=== PATIENT | male | born 1960 | race Caucasian/White ===

== ENCOUNTER 2016-07-02 12:46 | Emergency (ER) | payer OTHER ==
[2016-07-02] MEDS ORDERED: OXYCODONE/APAP 5/325MG COMBO TABLET PO ONE (12:59)
[2016-07-02] MEDS ORDERED: METHOCARBAMOL 500 MG TABLET PO ONE (12:59)
[2016-07-02] MEDS ORDERED: morphine CARPU-JECT 4 MG/1 ML DISP.SYRIN IVPUSH ONE (13:05)
[2016-07-02] MEDS ORDERED: METHOCARBAMOL 500 MG TABLET ONE (13:06)
[2016-07-02 13:07] VITALS: BP 131/108; PULSE 99; TEMP 98
[2016-07-02] MEDS ORDERED: morphine CARPU-JECT 4 MG/1 ML DISP.SYRIN ONE (13:22)
[2016-07-02 13:35] VITALS: BMI 44.9
--- NOTE | 2016-07-02 14:01 | PDOC ---
History of Present Illness - General History Source: Patient Exam Limitations: No Limitations <Mary Cid - Last Filed: 07/02/16 14:08> - General History Source: Patient Exam Limitations: No Limitations - History of Present Illness Initial Comments: 07/02/16 14:13 The patient is a 55-year-old male, with a significant past medical history of two clogged arteries (2 stents), hypercholesterolemia, herniated disc, spinal stenosis, arthritis of the knee, who presents to the emergency department with left shoulder pain s/p mechanical fall today. The patient reports suddenly falling face first while walking in the snow. He states he had his hands and arms outstretched to break the fall, and landed on the left side of his body. He reports feeling like something ripped from the left shoulder. He states the pain is exacerbated by movement. The patient denies head trauma or loss of consciousness. He denies paresthesia in the extremities secondary to the mechanical fall. The patient denies chest pain, shortness of breath, palpitations, headache and dizziness. The patient denies fever, chills, nausea, vomit, diarrhea and constipation. Allergies: lactose Social history: Former smoker (quit 4 years ago, 2 packs per day), former alcohol abuse. <TariqKeisha - Last Filed: 07/02/16 14:17> - General Chief Complaint: Shoulder Dislocation Stated Complaint: FALL Time Seen by Provider: 07/02/16 12:57 Past History - Past Medical History Anemia: No Asthma: No Cancer: No Cardiac Disorders: Yes (cad s/p angioplasty with 2 stents at [facility] 08/20/15) CVA: No COPD: No CHF: No Dementia: No Diabetes: No GI Disorders: Yes (gerd, completed tx for H. pylori 3 yrs ago ) Disorders: No HTN: Yes (on meds) Hypercholesterolemia: Yes (on med) Kidney Stones: No Liver Disease: No Suicide Attempt (Hx): Yes (age 8) Seizures: No Thyroid Disease: No Other medical history: 2 STENTS - Surgical History Abdominal Surgery: No Appendectomy: No Cardiac Surgery: Yes (s/p angioplasty with 2 stents in 08/20/15 at [facility]) Cholecystectomy: No Lung Surgery: No Neurologic Surgery: No Orthopedic Surgery: No - Reproductive History Testicular Surgery: No - Psycho/Social/Smoking Cessation Hx Anxiety: No Suicidal Ideation: No Smoking History: Former smoker Have you smoked in the past 12 months: No If you are a former smoker, when did you quit?: 2012 Information on smoking cessation initiated: No 'Breaking Loose' booklet given: 10/07/15 Hx Alcohol Use: Yes (FORMER) Drug/Substance Use Hx: No Substance Use Type: Alcohol Hx Substance Use Treatment: Yes ([facility] ) <Mary Cid - Last Filed: 07/02/16 14:08> <Keisha Tariq - Last Filed: 07/02/16 14:17> - Past Medical History Allergies/Adverse Reactions: Allergies Allergy/AdvReac Type Severity Reaction Status Date / Time lactose AdvReac Severe Verified 07/02/16 13:00 Home Medications: Ambulatory Orders Aspirin [ASA -] 81 mg PO DAILY 10/07/15 Clopidogrel Bisulfate [Plavix -] 75 mg PO DAILY 10/07/15 Omeprazole [Prilosec] 20 mg PO BID 10/07/15 Atorvastatin Ca [Lipitor] 40 mg PO HS #0 tablet 10/11/15 Acetaminophen [Tylenol -] 1,000 mg PO BID PRN 10/16/15 Folic Acid - 1 mg PO DAILY 10/16/15 Gabapentin [Neurontin -] 300 mg PO BID 10/16/15 Metoprolol Tartrate [Lopressor -] 12.5 mg PO BID 10/16/15 Thiamine HCl [B-1] 100 mg PO DAILY 10/16/15 Methocarbamol [Robaxin -] 500 mg PO TID PRN #30 tablet 07/02/16 Oxycodone HCl/Acetaminophen [Percocet 5-325 mg Tablet -] 1 tab PO Q6H PRN #16 tablet MDD 4 07/02/16 Trauma Specific PMHX - Complaint Specific PMHX Arthritis: Yes (knees) <Mary Cid - Last Filed: 07/02/16 14:08> Review of Systems - Review of Systems Able to Perform ROS?: Yes Comments:: 07/02/16 14:13 GENERAL/CONSTITUTIONAL: No: fever, chills, weakness, loss of appetite. HEAD, EYES, EARS, NOSE AND THROAT: No: change in vision, ear pain, discharge, sore throat, throat swelling. CARDIOVASCULAR: No: chest pain, lightheadedness, palpitations, syncope RESPIRATORY: No: cough, shortness of breath, wheezing, hemoptysis, stridor. GASTROINTESTINAL: No: nausea, vomiting, abdominal cramping, diarrhea, rectal bleeding, constipation. GENITOURINARY: No: dysuria, hematuria, frequency, urgency, flank pain. MUSCULOSKELETAL: Present: (+) left shoulder pain No: back pain, neck pain, muscle swelling SKIN AND BREASTS: No: lesions, pallor, rash or easy bruising. NEUROLOGIC: No: headache, vertigo, paresthesias, weakness ENDOCRINE: No: unexplained weight gain or loss HEMATOLOGIC/LYMPHATIC: No: anemia, easy bleeding, swelling nodes <Tariq,Keisha - Last Filed: 07/02/16 14:17> *Physical Exam - Vital Signs Last Vital Signs Temp Pulse Resp BP Pulse Ox 98.0 F 99 H 20 131/108 07/02/16 13:01 07/02/16 13:01 07/02/16 13:01 07/02/16 13:01 <Mary Cid - Last Filed: 07/02/16 14:08> - Vital Signs Last Vital Signs Temp Pulse Resp BP Pulse Ox 98.0 F 99 H 20 131/108 07/02/16 13:01 07/02/16 13:01 07/02/16 13:01 07/02/16 13:01 - Physical Exam Comments: 07/02/16 14:13 GENERAL: Awake, alert, and oriented. HEAD: Normal with no evidence of head trauma. EYES: PERRLA, EOMI, sclera anicteric, conjunctiva clear. ENT: Ears normal, nares patent, oropharynx clear without exudates. Moist mucous membranes. NECK: Normal range of motion, supple without lymphadenopathy, JVD, or masses. LUNGS: Breath sounds equal, clear to auscultation bilaterally. No wheezes, and no crackles. HEART:Regular rate and rhythm, normal S1 and S2 without murmur, rub or gallop. ABDOMEN: Soft, nontender, normoactive bowel sounds. No guarding, no rebound. EXTREMITIES: (+) Left shoulder deformity, pain with motion. (+) Radial and ulnar pulse normal. Sensation intact. (+)Limited range of motion at the left shoulder due to pain. No edema. No clubbing or cyanosis. No erythema. NEUROLOGICAL: Cranial nerves II through XII grossly intact. Normal speech. No focal neurological deficits. MUSCULOSKELETAL: Back non-tender to palpation, no CVA tenderness SKIN: Warm, Dry, normal turgor, no rashes or lesions noted. <Keisha Tariq - Last Filed: 07/02/16 14:17> ED Treatment Course - RADIOLOGY Radiology Studies Ordered: Category Date Time Status SHOULDER-LEFT [RAD] Stat Radiology 07/02/16 12:58 Completed - Medications Given in the ED: ED Medications Discontinued Medications Generic Name Dose Route Start Last Admin Trade Name Freq PRN Reason Stop Dose Admin Methocarbamol 500 mg 07/02/16 12:59 07/02/16 13:14 Robaxin - PO 07/02/16 13:00 500 mg ONCE ONE Administration Morphine Sulfate 4 mg 07/02/16 13:05 07/02/16 13:33 Morphine Injection - IVPUSH 07/02/16 13:06 4 mg ONCE ONE Administration Oxycodone/Acetaminophen 1 combo 07/02/16 12:59 07/02/16 13:40 Percocet 5/325 - PO 07/02/16 13:00 Not Given ONCE ONE <Mary Cid - Last Filed: 07/02/16 14:08> - RADIOLOGY Radiograph Interpretation: 07/02/16 14:14 RAD/SHOULDER- LEFT Reviewed by: Dr. Mary Cid Interpreted by: Dr. Yfn Emanuel IMPRESSION: Acute left humeral fracture. - Medications Given in the ED: ED Medications Discontinued Medications Generic Name Dose Route Start Last Admin Trade Name Freq PRN Reason Stop Dose Admin Methocarbamol 500 mg 07/02/16 12:59 07/02/16 13:14 Robaxin - PO 07/02/16 13:00 500 mg ONCE ONE Administration Morphine Sulfate 4 mg 07/02/16 13:05 07/02/16 13:33 Morphine Injection - IVPUSH 07/02/16 13:06 4 mg ONCE ONE Administration Oxycodone/Acetaminophen 1 combo 07/02/16 12:59 07/02/16 13:40 Percocet 5/325 - PO 07/02/16 13:00 Not Given ONCE ONE <Keisha Tariq - Last Filed: 07/02/16 14:17> Medical Decision Making - Medical Decision Making 07/02/16 13:47 A portion of this note was documented by scribe services under my direction. I have reviewed the details of the note, within reason, and agree with the documentation with the following case summary and management plan written by me. Nursing documentation reviewed and incorporated into medical decision making This is a 55 yo M who presents to the ER s/p fall from standing He has a history of HTN, HLD, CAD s/p stent x 2 Pt states he was walking on the street and slipped (it was snowy today) He fell forward and landed on his left arm which was outstretched No head trauma No LOC No amnesia No preceding chest pain, shortness of breath, palpitations, focal weakness or numbness 07/02/16 13:52 On examination: Left shoulder deformity Sensation in tact in the hand and over the deltoids Able to move fingers, no difficulty Hand is warm 2+ RP and UP Xray: Acute left femoral head and neck fracture Case reviewed with Ortho Pt can be discharged Pt can go in a sling Pt can follow up with Dr Barton within 2-3 business days Pt will need to also follow up with PMD for medical clearance Monitor for numbness, tingling, swelling <Mary Cid - Last Filed: 07/02/16 14:08> *DC/Admit/Observation/Transfer - Discharge Dispostion Admit: No <Mary Cid - Last Filed: 07/02/16 14:08> - Attestations Scribe Attestion: 07/02/16 14:14 Documentation prepared by Keisha Tariq, acting as medical assistant dermatology for Mary Cid MD. <Keisha Tariq - Last Filed: 07/02/16 14:17> Diagnosis at time of Disposition: Fracture of humeral head, closed Qualifiers: Encounter type: initial encounter Laterality: left Qualified Code(s): S42.292A - Other displaced fracture of upper end of left humerus, initial encounter for closed fracture Fracture of neck of humerus Qualifiers: Encounter type: initial encounter Fracture type: closed Laterality: left Qualified Code(s): S42.212A - Unspecified displaced fracture of surgical neck of left humerus, initial encounter for closed fracture - Discharge Dispostion Disposition: HOME Condition at time of disposition: Improved - Prescriptions Prescriptions: Oxycodone HCl/Acetaminophen [Percocet 5-325 mg Tablet -] 1 tab PO Q6H PRN #16 tablet MDD 4 PRN Reason: Severe Pain Methocarbamol [Robaxin -] 500 mg PO TID PRN #30 tablet PRN Reason: shoulder pain - Referrals Referrals: Sascha Barton MD [Staff Physician] - - Patient Instructions Printed Discharge Instructions: How to Use a Sling, DI for Shoulder Fracture Additional Instructions: Hilton I am sorry that you fell today and this happened to you Your humerus is fractured You will need to follow up with the Orthopedic doctor for possible surgical intervention Please take medications as prescribed Please monitor yourself for numbness, tingling, decreased sensation, firm compartments of the hand or arm - Post Discharge Activity Work/School Note: Back to Work
== END 2016-07-02 14:36 | disposition home or self-care (01) ==
LOC: JER 12:46
PROC: 3E033NZ Introduction of Analgesics, Hypnotics, Sedatives into Peripheral Vein, Percutaneous Approach (ICD-10-PCS; principal; 2016-07-02)
DX: S42.292A Other displaced fracture of upper end of left humerus, initial encounter for closed fracture (principal); S42.212A Unspecified displaced fracture of surgical neck of left humerus, initial encounter for closed fracture; W00.2XXA Other fall from one level to another due to ice and snow, initial encounter; Y93.01 Activity, walking, marching and hiking; Y92.414 Local residential or business street as the place of occurrence of the external cause; I10 Essential (primary) hypertension; E78.00 Pure hypercholesterolemia, unspecified; K21.9 Gastro-esophageal reflux disease without esophagitis; Z95.5 Presence of coronary angioplasty implant and graft
CPT/HCPCS: 73030-TC-LT; 96374; 99282-25

== ENCOUNTER 2016-10-24 11:38 | Inpatient (IN) | payer OTHER ==
[2016-10-24 12:22] VITALS: BMI 34.4
--- NOTE | 2016-10-24 14:37 | HP ---
Admission ROS [facility] Chief Complaint: i need to continue treatment in rehab. Allergies/Adverse Reactions: Allergies Allergy/AdvReac Type Severity Reaction Status Date / Time lactose AdvReac Severe Verified 10/24/16 13:35 NKDA Allergy Uncoded 10/24/16 13:35 History of Present Illness: pt is a 56yr old male with a history of alcohol dependence seeking rehab for treatment. Exam Limitations: No Limitations - Ebola screening Have you traveled outside of the country in the last 21 days: No Have you had contact with anyone from an Ebola affected area: No Have you been sick,other than usual withdrawal symptoms: No Do you have a fever: No - Review of Systems Constitutional: No Symptoms Reported EENT: reports: No Symptoms Reported Respiratory: reports: No Symptoms reported Cardiac: reports: No Symptoms Reported GI: reports: No Symptoms Reported : reports: No Symptoms Reported Musculoskeletal: reports: Back Pain, Joint Stiffness Integumentary: reports: No Symptoms Reported, Sweating Neuro: reports: No Symptoms reported Endocrine: reports: Excessive Sweating, Flushing, Intolerance to Cold, Intolerance to Heat Hematology: reports: No Symptoms Reported Psychiatric: reports: Judgement Intact, Mood/Affect Appropiate, Orientated x3, Agitated, Anxious Other Systems: Reviewed and Negative Patient History - Patient Medical History Hx Anemia: No Hx Asthma: No Hx Chronic Obstructive Pulmonary Disease (COPD): No Hx Cancer: No Hx Cardiac Disorders: Yes (cad s/p angioplasty with [address] [facility] 08/20/15) Hx Congestive Heart Failure: No Hx Hypertension: Yes (on meds) Hx Hypercholesterolemia: Yes (on med) Hx Pacemaker: No HX Cerebrovascular Accident: No Hx Seizures: No Hx Dementia: No Hx Diabetes: No Hx Gastrointestinal Disorders: Yes (gerd, completed tx for H. pylori 3 yrs ago ) Hx Liver Disease: No Hx Genitourinary Disorders: No Hx Sexually Transmitted Disorders: No Hx Renal Disease (ESRD): No Hx Thyroid Disease: No Hx Human Immunodeficiency Virus (HIV): No (negative) Hx Hepatitis C: No (negative) Hx Depression: Yes Hx Suicide Attempt: Yes (age 8/ denies any S/H ideatio today) Hx Bipolar Disorder: No Hx Schizophrenia: No - Patient Surgical History Past Surgical History: No Hx Neurologic Surgery: No Hx Cataract Extraction: No Hx Cardiac Surgery: Yes (s/p angioplasty with 2 stents in 08/20/[address] [facility]) Hx Lung Surgery: No Hx Breast Surgery: No Hx Breast Biopsy: No Hx Abdominal Surgery: No Hx Appendectomy: No Hx Cholecystectomy: No Hx Genitourinary Surgery: No Hx Section: No Hx Orthopedic Surgery: No Anesthesia Reaction: No - PPD History Previous Implant?: Yes Documented Results: Negative w/o proof PPD to be Administered?: Yes - Reproductive History Patient is a Female of Child Bearing Age (11 -55 yrs old): No Patient : No - Smoking Cessation Smoking history: Current every day smoker Have you smoked in the past 12 months: No If you are a former smoker, when did you quit?: 3 Hx Chewing Tobacco Use: No Initiated information on smoking cessation: Yes 'Breaking Loose' booklet given: 10/24/16 - Substance & Tx. History Hx Alcohol Use: Yes Hx Substance Use: No Substance Use Type: Alcohol Hx Substance Use Treatment: No - Substances Abused Alcohol Route: Oral Frequency: 1-2 times per week Amount used: 3 can beer and 1 pt vodka Age of first use: 17 Date of Last Use: 11/17/16 Family Disease History - Family Disease History Family Disease History: Heart Disease: Grandparent (alcohol ), Other: Grandparent, Father (alcohol) Admission Physical Exam [facility] - Vital Signs Vital Signs: Vital Signs - 24 hr 10/24/16 12:18 Temperature 99.2 F Pulse Rate 120 H Respiratory 20 Rate Blood Pressure 142/109 - Physical General Appearance: Yes: Appropriately Dressed, Sweating, Anxious HEENTM: Yes: Normal Voice Respiratory: Yes: Lungs Clear, Normal Breath Sounds, No Respiratory Distress Neck: Yes: No masses,lesions,Nodules Breast: Yes: Within Normal Limits Cardiology: Yes: Regular Rhythm, Regular Rate, S1, S2, Tachycardia Abdominal: Yes: Normal Bowel Sounds, Non Tender, Soft Genitourinary: Yes: Within Normal Limits Back: Yes: Normal Inspection Musculoskeletal: Yes: full range of Motion Extremities: Yes: Normal Capillary Refill Neurological: Yes: Fully Oriented, Alert, Normal Response Integumentary: Yes: Normal Color Lymphatic: Yes: Within Normal Limits [facility] Breath Alcohol Content Breath Alcohol Content: 0 Urine Drug Screen - Results Drug Screen Negative: No Urine Drug Screen Results: TCA-Tricyclic Antidepress
[2016-10-24] MEDS ORDERED: MAGNESIUM HYDROX 2400MG/30ML ORAL SUSPENSION 30 ML CUP PO PRN (14:46)
[2016-10-24] MEDS ORDERED: hydrOXYzine PAMOATE 50 MG CAPSULE (FP) PO PRN (14:46)
[2016-10-24] MEDS ORDERED: MAGNESIUM CITRATE 300 ML BOTTLE PO PRN (14:46)
[2016-10-24] MEDS ORDERED: NICOTINE POLACRILEX 4 MG GUM BUC PRN (14:46)
[2016-10-24] MEDS ORDERED: P-EPHED 60MG/TRIPROLIDI 2.5MG TABLET PO PRN (14:46)
[2016-10-24] MEDS ORDERED: ACETAMINOPHEN 325 MG TABLET (FP) PO PRN (14:46)
[2016-10-24] MEDS ORDERED: LOPERAMIDE HCL 2 MG CAPSULE PO PRN (14:46)
[2016-10-24] MEDS ORDERED: guaiFENesin/D-METHORPHAN HB 10 ML UNIT-DOSE CUPS PO PRN (14:46)
[2016-10-24 16:55] LABS: URINE APPEARANCE CLEAR; URINE BILIRUBIN NEGATIVE (NEGATIVE); URINE COLOR YELLOW; URINE GLUCOSE (UA) NEGATIVE (NEGATIVE); URINE KETONE NEGATIVE (NEGATIVE); URINE LEUK ESTERASE NEGATIVE (NEGATIVE); URINE NITRITE NEGATIVE (NEGATIVE); URINE PROTEIN NEGATIVE (NEGATIVE); URINE UROBILINOGEN NEGATIVE E.U./dl (0.2-1.0)
[2016-10-24 16:58] LABS: URINE BLOOD 1+ (NEGATIVE)
[2016-10-24 17:01] LABS: URINE MUCUS MODERATE; URINE RBC <1 /hpf (0-3); URINE WBC <1 /hpf (3-5)
[2016-10-24 17:40] LABS: MCHC 32.4 g/dl (32.0-35.9); MEAN CELL VOLUME 89.4 fl (80-96); MEAN PLT VOLUME 9.2 fl (7.5-11.1); PLATELET COUNT 173 K/MM3 (134-434); RDW 15.9 % (11.9-15.9); WHITE BLOOD COUNT 3.8 K/mm3 (4.0-10.0)
[2016-10-24 17:42] LABS: ALBUMIN 4.2 g/dl (3.4-5.0); ANION GAP 9 (8-16); CALCIUM 9.2 mg/dL (8.5-10.1); CO2 27 mmol/L (21-32); GLUCOSE,RANDOM 134 mg/dL (74-106); SGPT/ALT 39 U/L (12-78)
[2016-10-24 17:45] LABS: ALK PHOS 149 U/L (45-117); BILIRUBIN,TOTAL 0.9 mg/dL (0.2-1.0); COCKROFT - GAULT 104.5; CREATININE 1.1 mg/dL (0.7-1.3); SGOT/AST 56 U/L (15-37); TOT PROT 8.4 g/dl (6.4-8.2)
[2016-10-24] MEDS ORDERED: TUBERCULIN PPD 5 TU/0.1ML VIAL ID ONE (18:30)
[2016-10-24] MEDS: MAG HYDROX/AL HYDROX/SIMETH 30 ML UNIT-DOSE CUP PO PRN (18:30)
[2016-10-24] MEDS: THIAMINE HCL 100 MG TABLET (FP) PO SCH (21:44)
[2016-10-24] MEDS: ATORVASTATIN CA 40 MG TABLET (FP) PO SCH (21:44)
[2016-10-24] MEDS: diphenhydrAMINE HCL 50 MG CAPSULE PO PRN ×2 (21:44→22:59)
[2016-10-25] MEDS ORDERED: FOLIC ACID 1 MG TABLET (FP) PO SCH (10:00)
[2016-10-25] MEDS: THIAMINE HCL 100 MG TABLET (FP) PO SCH ×3 (10:24→21:44)
[2016-10-25] MEDS: METOPROLOL SUCCINATE 50 MG TAB.SR.24H (FP) PO SCH (10:36)
[2016-10-25] MEDS: PRENATAL VITAMINS W/ FOLIC ACID TABLET (FP) PO SCH (10:36)
[2016-10-25] MEDS: PATIENT'S OWN MEDICATION (NON-FORMULARY) (Rabeprazole Sodium [Aciphex] 20 MG) PO SCH (10:37)
[2016-10-25] MEDS: ASPIRIN 81 MG CHEWABLE TABLETS PO SCH (10:37)
[2016-10-25] MEDS: NICOTINE 21 MG/24 HOURS TOPICAL PATCH TD SCH (10:37)
[2016-10-25] MEDS: LISINOPRIL 5 MG TABLET (FP) PO SCH (10:37)
[2016-10-25 11:15] LABS: HIV 1 & 2 AB NEGATIVE; HIV 1 AGp24 NEGATIVE
--- NOTE | 2016-10-25 11:42 | HP ---
Psychiatrist Admission - Data Date of interview: 10/25/16 Admission source: [facility] Identifying data: This is the second [facility] inpatient rehabilitation admission, first to [place] for this 55 year old mal efather of 2, he is unemployed on PA and domiciled. Medical History: Hisotry of hypertension, hypercholesterolemia, GERD, [place] x1 with angioplasty. and stents x2 07/2015, hemorrhoids, arthritis to neck and knees and spinal stenosis to lower. back and fracture to left shoulder 06/2016. Psychiatric History: Patient apryl was seen by a psychiatrist and therapist while in rehabilitation treatment at the [facility] about 4 year ago, apryl was put on Cymbalta, he stopped it since was "too sleepy and unable to stay in groups".He denies hisotry of psychiatric hospitalizations, apryl was diagnosed with a depression, currently not on any medications, however he feels anxious during the day and having difficult time to slee, was on Ambien in the past. Patient was explaine he can't get Ambien while in rehabilitation but Vistaril 50 mg po hs. Physical/Sexual Abuse/Trauma History: Patient denies history of sexual, physical and verbal abuse. Vital Signs: Vital Signs - 24 hr 10/24/16 10/24/16 10/25/16 12:18 16:10 03:30 Temperature 99.2 F 98.7 F Pulse Rate 120 H 108 H Respiratory 20 18 16 Rate Blood Pressure 142/109 118/68 10/25/16 06:44 Temperature 97.5 F L Pulse Rate 78 Respiratory 20 Rate Blood Pressure 123/83 Allergies/Adverse Reactions: Allergies Allergy/AdvReac Type Severity Reaction Status Date / Time lactose AdvReac Severe Verified 10/24/16 13:35 NKDA Allergy Uncoded 10/24/16 13:35 Date of last physical exam: 10/24/16 Concur with the findings of this exam: Yes - Substance Abuse/Tx History Hx Alcohol Use: Yes Hx Substance Use: No Substance Use Type: Alcohol (3-6 times a week, vodka 1 pint and 3 cans of beer) Hx Substance Use Treatment: Yes (several detox) - Admission Criteria Previous failed treatment: Yes Poor recovery environment: Yes Comorbidities: Yes Lacks judgement: Yes Mental Status Exam - Mental Status Exam Alert and Oriented to: Time, Place, Person Cognitive Function: Good Patient Appearance: Well Groomed Mood: Sad, Anxious Affect: Appropriate, Mood Congruent Patient Behavior: Appropriate, Cooperative Speech Pattern: Clear, Appropriate Voice Loudness: Normal Thought Process: Intact, Goal Oriented Thought Disorder: Not Present Hallucinations: Denies Suicidal Ideation: Denies Homicidal Ideation: Denies Insight/Judgement: Good Sleep: Poorly, Difficulty falling asleep Appetite: Good Muscle strength/Tone: Normal Gait/Station: Normal Psychiatric Findings - Problem List ([place] 1, 2,3) (1) Alcohol dependence Current Visit: No Status: Acute (2) Insomnia Current Visit: No Status: Acute - Initial Treatment Plan Initial Treatment Plan: Patient was made aware of Vistaril PRN order for anxiety , will add 50 mg po hs for insomnia, contineu to monitor progress.
[2016-10-25] MEDS: IBUPROFEN 400 MG TABLET (FP) PO PRN (11:43)
[2016-10-25] MEDS: ATORVASTATIN CA 40 MG TABLET (FP) PO SCH (21:44)
[2016-10-25] MEDS ORDERED: hydrOXYzine PAMOATE 50 MG CAPSULE (FP) PO SCH (22:00)
--- NOTE | 2016-10-25 23:08 | EKG ---
Test Reason : Blood Pressure : / mmHG Vent. Rate : 093 BPM Atrial Rate : 093 BPM P-R Int : 138 ms QRS Dur : 084 ms QT Int : 340 ms P-R-T Axes : 046 -18 016 degrees QTc Int : 422 ms NORMAL SINUS RHYTHM MODERATE VOLTAGE CRITERIA FOR LVH, MAY BE NORMAL VARIANT BORDERLINE ECG NO PREVIOUS ECGS AVAILABLE Confirmed by LARISSA KATZ MD ([id number]) on 10/25/2016 11:08:00 PM Referred By: Confirmed By:LARISSA KATZ MD
[2016-10-26] MEDS: IBUPROFEN 400 MG TABLET (FP) PO PRN (07:51)
[2016-10-26] MEDS: ASPIRIN 81 MG CHEWABLE TABLETS PO SCH (10:22)
[2016-10-26] MEDS: LISINOPRIL 5 MG TABLET (FP) PO SCH (10:22)
[2016-10-26] MEDS: PATIENT'S OWN MEDICATION (NON-FORMULARY) (Rabeprazole Sodium [Aciphex] 20 MG) PO SCH (10:22)
[2016-10-26] MEDS: METOPROLOL SUCCINATE 50 MG TAB.SR.24H (FP) PO SCH (10:22)
[2016-10-26] MEDS: PRENATAL VITAMINS W/ FOLIC ACID TABLET (FP) PO SCH (10:22)
[2016-10-26] MEDS: NICOTINE 21 MG/24 HOURS TOPICAL PATCH TD SCH (10:23)
[2016-10-26] MEDS: THIAMINE HCL 100 MG TABLET (FP) PO SCH ×2 (10:24→21:35)
--- NOTE | 2016-10-26 11:35 | PN ---
[facility] Progress Note Note: patient reports that Vistaril 50 mg po hs not effective and wants to switch to Benadryl 100 mg po hs,
[2016-10-26] MEDS: MENTHOL/PHENOL 1 EACH UD MM PRN (13:19)
[2016-10-26] MEDS: ATORVASTATIN CA 40 MG TABLET (FP) PO SCH (21:35)
[2016-10-26] MEDS: diphenhydrAMINE HCL 50 MG CAPSULE PO PRN (21:35)
[2016-10-27] MEDS: IBUPROFEN 400 MG TABLET (FP) PO PRN (09:29)
[2016-10-27] MEDS: METOPROLOL SUCCINATE 50 MG TAB.SR.24H (FP) PO SCH (09:30)
[2016-10-27] MEDS: LISINOPRIL 5 MG TABLET (FP) PO SCH (09:30)
[2016-10-27] MEDS: PATIENT'S OWN MEDICATION (NON-FORMULARY) (Rabeprazole Sodium [Aciphex] 20 MG) PO SCH (09:30)
[2016-10-27] MEDS: ASPIRIN 81 MG CHEWABLE TABLETS PO SCH (09:30)
[2016-10-27] MEDS: NICOTINE 21 MG/24 HOURS TOPICAL PATCH TD SCH (09:31)
[2016-10-27] MEDS: PRENATAL VITAMINS W/ FOLIC ACID TABLET (FP) PO SCH (09:31)
[2016-10-27] MEDS: THIAMINE HCL 100 MG TABLET (FP) PO SCH (21:51)
[2016-10-27] MEDS: ATORVASTATIN CA 40 MG TABLET (FP) PO SCH (21:51)
[2016-10-27] MEDS: diphenhydrAMINE HCL 50 MG CAPSULE PO PRN (21:52)
[2016-10-28] MEDS: NICOTINE 21 MG/24 HOURS TOPICAL PATCH TD SCH (10:05)
[2016-10-28] MEDS: ASPIRIN 81 MG CHEWABLE TABLETS PO SCH (10:05)
[2016-10-28] MEDS: LISINOPRIL 5 MG TABLET (FP) PO SCH (10:05)
[2016-10-28] MEDS: PRENATAL VITAMINS W/ FOLIC ACID TABLET (FP) PO SCH (10:05)
[2016-10-28] MEDS: METOPROLOL SUCCINATE 50 MG TAB.SR.24H (FP) PO SCH (10:05)
[2016-10-28] MEDS: PATIENT'S OWN MEDICATION (NON-FORMULARY) (Rabeprazole Sodium [Aciphex] 20 MG) PO SCH (10:06)
[2016-10-28] MEDS: IBUPROFEN 400 MG TABLET (FP) PO PRN (10:59)
[2016-10-28] MEDS: ATORVASTATIN CA 40 MG TABLET (FP) PO SCH (21:47)
[2016-10-28] MEDS: diphenhydrAMINE HCL 50 MG CAPSULE PO PRN (21:47)
[2016-10-28] MEDS: THIAMINE HCL 100 MG TABLET (FP) PO SCH (21:47)
[2016-10-29] MEDS: LISINOPRIL 5 MG TABLET (FP) PO SCH (10:34)
[2016-10-29] MEDS: PATIENT'S OWN MEDICATION (NON-FORMULARY) (Rabeprazole Sodium [Aciphex] 20 MG) PO SCH (10:34)
[2016-10-29] MEDS: PRENATAL VITAMINS W/ FOLIC ACID TABLET (FP) PO SCH (10:34)
[2016-10-29] MEDS: ASPIRIN 81 MG CHEWABLE TABLETS PO SCH (10:34)
[2016-10-29] MEDS: METOPROLOL SUCCINATE 50 MG TAB.SR.24H (FP) PO SCH (10:34)
[2016-10-29] MEDS: NICOTINE 21 MG/24 HOURS TOPICAL PATCH TD SCH (10:35)
[2016-10-29] MEDS: IBUPROFEN 400 MG TABLET (FP) PO PRN (11:26)
[2016-10-29] MEDS: MENTHOL/PHENOL 1 EACH UD MM PRN (13:38)
[2016-10-29] MEDS: diphenhydrAMINE HCL 50 MG CAPSULE PO PRN (21:47)
[2016-10-29] MEDS: THIAMINE HCL 100 MG TABLET (FP) PO SCH (21:47)
[2016-10-29] MEDS: ATORVASTATIN CA 40 MG TABLET (FP) PO SCH (21:47)
[2016-10-30] MEDS: ASPIRIN 81 MG CHEWABLE TABLETS PO SCH (10:31)
[2016-10-30] MEDS: LISINOPRIL 5 MG TABLET (FP) PO SCH (10:31)
[2016-10-30] MEDS: PRENATAL VITAMINS W/ FOLIC ACID TABLET (FP) PO SCH (10:31)
[2016-10-30] MEDS: METOPROLOL SUCCINATE 50 MG TAB.SR.24H (FP) PO SCH (10:31)
[2016-10-30] MEDS: NICOTINE 21 MG/24 HOURS TOPICAL PATCH TD SCH (10:32)
[2016-10-30] MEDS: PATIENT'S OWN MEDICATION (NON-FORMULARY) (Rabeprazole Sodium [Aciphex] 20 MG) PO SCH (10:32)
[2016-10-30] MEDS: MAG HYDROX/AL HYDROX/SIMETH 30 ML UNIT-DOSE CUP PO PRN (15:34)
[2016-10-30] MEDS: diphenhydrAMINE HCL 50 MG CAPSULE PO PRN (21:36)
[2016-10-30] MEDS: THIAMINE HCL 100 MG TABLET (FP) PO SCH (21:36)
[2016-10-30] MEDS: ATORVASTATIN CA 40 MG TABLET (FP) PO SCH (21:36)
[2016-10-31] MEDS: PRENATAL VITAMINS W/ FOLIC ACID TABLET (FP) PO SCH (10:35)
[2016-10-31] MEDS: METOPROLOL SUCCINATE 50 MG TAB.SR.24H (FP) PO SCH (10:35)
[2016-10-31] MEDS: PATIENT'S OWN MEDICATION (NON-FORMULARY) (Rabeprazole Sodium [Aciphex] 20 MG) PO SCH (10:36)
[2016-10-31] MEDS: ASPIRIN 81 MG CHEWABLE TABLETS PO SCH (10:36)
[2016-10-31] MEDS: LISINOPRIL 5 MG TABLET (FP) PO SCH (10:36)
[2016-10-31] MEDS: NICOTINE 21 MG/24 HOURS TOPICAL PATCH TD SCH (10:36)
[2016-10-31] MEDS: MAG HYDROX/AL HYDROX/SIMETH 30 ML UNIT-DOSE CUP PO PRN (13:53)
[2016-10-31] MEDS: diphenhydrAMINE HCL 50 MG CAPSULE PO PRN (21:44)
[2016-10-31] MEDS: RANITIDINE HCL 150 MG TABLET (FP) PO SCH (21:44)
[2016-10-31] MEDS: ATORVASTATIN CA 40 MG TABLET (FP) PO SCH (21:44)
[2016-10-31] MEDS: THIAMINE HCL 100 MG TABLET (FP) PO SCH (21:44)
[2016-11-01] MEDS: ASPIRIN 81 MG CHEWABLE TABLETS PO SCH (10:28)
[2016-11-01] MEDS: PRENATAL VITAMINS W/ FOLIC ACID TABLET (FP) PO SCH (10:28)
[2016-11-01] MEDS: RANITIDINE HCL 150 MG TABLET (FP) PO SCH ×2 (10:29→21:46)
[2016-11-01] MEDS: METOPROLOL SUCCINATE 50 MG TAB.SR.24H (FP) PO SCH (10:29)
[2016-11-01] MEDS: LISINOPRIL 5 MG TABLET (FP) PO SCH (10:29)
[2016-11-01] MEDS: NICOTINE 21 MG/24 HOURS TOPICAL PATCH TD SCH (10:29)
[2016-11-01] MEDS: diphenhydrAMINE HCL 50 MG CAPSULE PO PRN (21:46)
[2016-11-01] MEDS: THIAMINE HCL 100 MG TABLET (FP) PO SCH (21:46)
[2016-11-01] MEDS: ATORVASTATIN CA 40 MG TABLET (FP) PO SCH (21:46)
[2016-11-02] MEDS: RANITIDINE HCL 150 MG TABLET (FP) PO SCH ×2 (10:23→21:46)
[2016-11-02] MEDS: ASPIRIN 81 MG CHEWABLE TABLETS PO SCH (10:23)
[2016-11-02] MEDS: METOPROLOL SUCCINATE 50 MG TAB.SR.24H (FP) PO SCH (10:23)
[2016-11-02] MEDS: NICOTINE 21 MG/24 HOURS TOPICAL PATCH TD SCH (10:23)
[2016-11-02] MEDS: PRENATAL VITAMINS W/ FOLIC ACID TABLET (FP) PO SCH (10:23)
[2016-11-02] MEDS: LISINOPRIL 5 MG TABLET (FP) PO SCH (10:23)
[2016-11-02] MEDS: MAG HYDROX/AL HYDROX/SIMETH 30 ML UNIT-DOSE CUP PO PRN (10:43)
[2016-11-02] MEDS: diphenhydrAMINE HCL 50 MG CAPSULE PO PRN (21:46)
[2016-11-02] MEDS: THIAMINE HCL 100 MG TABLET (FP) PO SCH (21:46)
[2016-11-02] MEDS: ATORVASTATIN CA 40 MG TABLET (FP) PO SCH (21:46)
[2016-11-03] MEDS: MAG HYDROX/AL HYDROX/SIMETH 30 ML UNIT-DOSE CUP PO PRN (09:20)
[2016-11-03] MEDS: PRENATAL VITAMINS W/ FOLIC ACID TABLET (FP) PO SCH (10:50)
[2016-11-03] MEDS: METOPROLOL SUCCINATE 50 MG TAB.SR.24H (FP) PO SCH (10:50)
[2016-11-03] MEDS: ASPIRIN 81 MG CHEWABLE TABLETS PO SCH (10:50)
[2016-11-03] MEDS: RANITIDINE HCL 150 MG TABLET (FP) PO SCH (10:50)
[2016-11-03] MEDS: LISINOPRIL 5 MG TABLET (FP) PO SCH (10:50)
[2016-11-03] MEDS: NICOTINE 21 MG/24 HOURS TOPICAL PATCH TD SCH (10:51)
[2016-11-03] MEDS: RABEPRAZOLE PO SCH (15:45)
[2016-11-03] MEDS: ATORVASTATIN CA 40 MG TABLET (FP) PO SCH (21:43)
[2016-11-03] MEDS: diphenhydrAMINE HCL 50 MG CAPSULE PO PRN (21:43)
[2016-11-03] MEDS: THIAMINE HCL 100 MG TABLET (FP) PO SCH (21:43)
[2016-11-04] MEDS: METOPROLOL SUCCINATE 50 MG TAB.SR.24H (FP) PO SCH (10:29)
[2016-11-04] MEDS: LISINOPRIL 5 MG TABLET (FP) PO SCH (10:29)
[2016-11-04] MEDS: PRENATAL VITAMINS W/ FOLIC ACID TABLET (FP) PO SCH (10:29)
[2016-11-04] MEDS: ASPIRIN 81 MG CHEWABLE TABLETS PO SCH (10:29)
[2016-11-04] MEDS: RABEPRAZOLE PO SCH (10:30)
[2016-11-04] MEDS: NICOTINE 21 MG/24 HOURS TOPICAL PATCH TD SCH (10:30)
[2016-11-04] MEDS: FLUOCINONIDE 0.05% CREAM (60 GM TUBE) TP SCH ×2 (14:30→21:49)
[2016-11-04] MEDS: ATORVASTATIN CA 40 MG TABLET (FP) PO SCH (21:48)
[2016-11-04] MEDS: THIAMINE HCL 100 MG TABLET (FP) PO SCH (21:48)
[2016-11-04] MEDS: diphenhydrAMINE HCL 50 MG CAPSULE PO PRN (21:49)
[2016-11-05] MEDS: LISINOPRIL 5 MG TABLET (FP) PO SCH (10:47)
[2016-11-05] MEDS: PRENATAL VITAMINS W/ FOLIC ACID TABLET (FP) PO SCH (10:47)
[2016-11-05] MEDS: FLUOCINONIDE 0.05% CREAM (60 GM TUBE) TP SCH ×2 (10:47→21:39)
[2016-11-05] MEDS: NICOTINE 21 MG/24 HOURS TOPICAL PATCH TD SCH (10:47)
[2016-11-05] MEDS: ASPIRIN 81 MG CHEWABLE TABLETS PO SCH (10:47)
[2016-11-05] MEDS: METOPROLOL SUCCINATE 50 MG TAB.SR.24H (FP) PO SCH (10:47)
[2016-11-05] MEDS: RABEPRAZOLE PO SCH (10:47)
[2016-11-05] MEDS: ATORVASTATIN CA 40 MG TABLET (FP) PO SCH (21:39)
[2016-11-05] MEDS: diphenhydrAMINE HCL 50 MG CAPSULE PO PRN (21:39)
[2016-11-05] MEDS: THIAMINE HCL 100 MG TABLET (FP) PO SCH (21:39)
[2016-11-06] MEDS: ASPIRIN 81 MG CHEWABLE TABLETS PO SCH (10:41)
[2016-11-06] MEDS: NICOTINE 21 MG/24 HOURS TOPICAL PATCH TD SCH (10:41)
[2016-11-06] MEDS: LISINOPRIL 5 MG TABLET (FP) PO SCH (10:41)
[2016-11-06] MEDS: RABEPRAZOLE PO SCH (10:41)
[2016-11-06] MEDS: METOPROLOL SUCCINATE 50 MG TAB.SR.24H (FP) PO SCH (10:41)
[2016-11-06] MEDS: PRENATAL VITAMINS W/ FOLIC ACID TABLET (FP) PO SCH (10:41)
[2016-11-06] MEDS: FLUOCINONIDE 0.05% CREAM (60 GM TUBE) TP SCH ×2 (10:41→21:39)
[2016-11-06] MEDS: ATORVASTATIN CA 40 MG TABLET (FP) PO SCH (21:39)
[2016-11-06] MEDS: THIAMINE HCL 100 MG TABLET (FP) PO SCH (21:39)
[2016-11-06] MEDS: diphenhydrAMINE HCL 50 MG CAPSULE PO PRN (21:39)
[2016-11-07 07:05] VITALS: BP 125/80; PULSE 71; TEMP 98
--- NOTE | 2016-11-07 09:48 | PN ---
Psychiatric Progress Note Vital Signs: Vital Signs Period Temp Pulse Resp BP Sys/Mo Pulse Ox Last 24 Hr 98.0 F 71-75 16-18 125/80 Date of Session: 11/07/16 Chief Complaint:: discharge visit HPI: Alcohol dependence comorbid with Insomnia ROS: hypertension, hypercholesterolemia, GERD, [place] x1 with angioplasty. and stents x2 07/2015, hemorrhoids, arthritis to neck and knees medically managed Current Medications: Active Medications Generic Name Dose Route Start Last Admin Trade Name Freq PRN Reason Stop Dose Admin Acetaminophen 650 mg 10/24/16 14:46 Tylenol - PO Q4H PRN PAIN Al Hydroxide/Mg Hydroxide 30 ml 10/24/16 14:46 11/03/16 09:20 Mylanta Oral Suspension - PO 30 ml Q6H PRN Administration DYSPEPSIA Aspirin 81 mg 10/25/16 10:00 11/06/16 10:41 Asa - PO 81 mg DAILY RACQUEL Administration Atorvastatin Calcium 40 mg 10/24/16 22:00 11/06/16 21:39 Lipitor - PO 40 mg HS RACQUEL Administration Diphenhydramine HCl 100 mg 10/26/16 11:35 11/06/16 21:39 Benadryl - PO 100 mg HS PRN Administration INSOMNIA Eucalyptus/Menthol/Phenol/Sorbitol 1 each 10/24/16 14:46 10/29/16 13:38 Cepastat Lozenge - MM 1 each Q4H PRN Administration SORE THROAT Fluocinonide 1 applic 11/04/16 11:45 11/06/16 21:39 Lidex 0.05% Cream - TP Not Given BID RACQUEL Guaifenesin 10 ml 10/24/16 14:46 10/26/16 13:18 Robitussin Dm - PO 10 ml Q6H PRN Administration COUGH Hydroxyzine Pamoate 50 mg 10/24/16 14:46 Vistaril - PO Q4H PRN AGITATION Ibuprofen 400 mg 10/24/16 14:46 10/29/16 11:26 Motrin - PO 400 mg Q6H PRN Administration SEVERE PAIN Lisinopril 5 mg 10/25/16 10:00 11/06/16 10:41 Prinivil PO 5 mg DAILY RACQUEL Administration Loperamide HCl 4 mg 10/24/16 14:46 Imodium - PO Q6H PRN DIARRHEA Magnesium Citrate 300 ml 10/24/16 14:46 Citroma - PO Q48H PRN CONSTIPATION Magnesium Hydroxide 30 ml 10/24/16 14:46 Milk Of Magnesia - PO DAILY PRN CONSTIPATION Metoprolol Succinate 50 mg 10/25/16 10:00 11/06/16 10:41 Toprol Xl - PO 50 mg DAILY RACQUEL Administration Nicotine 21 mg 10/25/16 10:00 11/06/16 10:41 Nicoderm Patch - TD Not Given DAILY RACQUEL Nicotine Polacrilex 4 mg 10/24/16 14:46 Nicorette Gum - BUC Q2H PRN NICOTINE REPLACEMENT RX Non-Formulary Medication 20 mg 11/03/16 14:38 11/06/16 10:41 Raberprazole Sodium PO 20 mg DAILY RACQUEL Administration Multivit/Folic Acid/Iron 1 tab 10/25/16 10:00 11/06/16 10:41 Vitamins (Sjr) - PO 1 tab DAILY RACQUEL Administration Pseudoephedrine/Triprolidine 1 combo 10/24/16 14:46 Actifed - PO TID PRN NASAL CONGESTION Thiamine HCl 100 mg 10/24/16 22:00 11/06/16 21:39 Vitamin B1 - PO 100 mg HS RACQUEL Administration Current Side Effect: No Lab tests ordered: No Lab tests reviewed: Yes Provider note:: Patient has completed today his treatment and met his goals, will continue address his issues at [facility] outpatient treatment program. He gained insights into his addiction and motivated to continue maintain abstinence. Patient is stable for discharge. Total face to face time:: 15 Mental Status Exam - Mental Status Exam Alert and Oriented to: Time, Place, Person Cognitive Function: Good Patient Appearance: Well Groomed Mood: Hopeful Affect: Mood Congruent Patient Behavior: Appropriate, Cooperative Speech Pattern: Clear, Appropriate Voice Loudness: Normal Thought Process: Goal Oriented Thought Disorder: Not Present Hallucinations: Denies Suicidal Ideation: Denies Homicidal Ideation: Denies Insight/Judgement: Fair Sleep: Well Appetite: Good Muscle strength/Tone: Normal Gait/Station: Normal
[2016-11-07] MEDS: METOPROLOL SUCCINATE 50 MG TAB.SR.24H (FP) PO SCH (10:09)
[2016-11-07] MEDS: ASPIRIN 81 MG CHEWABLE TABLETS PO SCH (10:09)
[2016-11-07] MEDS: LISINOPRIL 5 MG TABLET (FP) PO SCH (10:09)
[2016-11-07] MEDS: PRENATAL VITAMINS W/ FOLIC ACID TABLET (FP) PO SCH (10:09)
[2016-11-07] MEDS: RABEPRAZOLE PO SCH (10:10)
[2016-11-07] MEDS: FLUOCINONIDE 0.05% CREAM (60 GM TUBE) TP SCH (10:11)
[2016-11-07] MEDS: NICOTINE 21 MG/24 HOURS TOPICAL PATCH TD SCH (10:11)
== END 2016-11-07 10:30 | disposition home or self-care (01) | DRG 772 ==
LOC: YASAS 11:38 → Y5N 14:39
PROVIDERS: ADMIT Psychiatry & Neurology Psychiatry; ATTEND Psychiatry & Neurology Psychiatry
PROC: HZ42ZZZ Group Counseling for Substance Abuse Treatment, Cognitive-Behavioral (ICD-10-PCS; principal; 2016-11-07)
DX: F10.230 Alcohol dependence with withdrawal, uncomplicated (principal); F32.9 Major depressive disorder, single episode, unspecified; G47.00 Insomnia, unspecified; I25.2 Old myocardial infarction; I25.10 Atherosclerotic heart disease of native coronary artery without angina pectoris; Z98.61 Coronary angioplasty status; I10 Essential (primary) hypertension; K22.9 Disease of esophagus, unspecified; M13.862 Other specified arthritis, left knee; M13.861 Other specified arthritis, right knee; M46.82 Other specified inflammatory spondylopathies, cervical region
CPT/HCPCS: 36415; 80053; 81003; 81015; 85027; 86593; 87389; 93005; 93010

== ENCOUNTER 2017-02-01 09:00 | Inpatient (IN) | payer OTHER ==
[2017-02-01 10:36] VITALS: BMI 34.0
--- NOTE | 2017-02-01 12:41 | HP ---
Admission [facility] Chief Complaint: I needed to be here so I done lose my apartment since I live in a disability facility. Last drink was Monday. Allergies/Adverse Reactions: Allergies Allergy/AdvReac Type Severity Reaction Status Date / Time No Known Drug Allergies Allergy Verified 10/31/16 12:40 lactose AdvReac Severe Vomiting Verified 02/01/17 10:51 History of Present Illness: I need the rehab to stay alcohol free. Exam Limitations: No Limitations - Ebola screening Have you traveled outside of the country in the last 21 days: No Have you had contact with anyone from an Ebola affected area: No Have you been sick,other than usual withdrawal symptoms: No - Review of Systems Constitutional: No Symptoms Reported EENT: reports: No Symptoms Reported Respiratory: reports: No Symptoms reported Cardiac: reports: Other (two stents place 2015.) GI: reports: No Symptoms Reported : reports: No Symptoms Reported Musculoskeletal: reports: Back Pain, Joint Pain, Other (left shoulder surgery 2016) Integumentary: reports: No Symptoms Reported Neuro: reports: No Symptoms reported Endocrine: reports: No Symptoms Reported Hematology: reports: No Symptoms Reported Psychiatric: reports: Judgement Intact, Mood/Affect Appropiate, Orientated x3, Anxious Other Systems: Reviewed and Negative Patient History - Patient Medical History Hx Anemia: No Hx Asthma: No Hx Chronic Obstructive Pulmonary Disease (COPD): No Hx Cancer: No Hx Cardiac Disorders: Yes (2 stents placed) Hx Congestive Heart Failure: No Hx Hypertension: Yes (with treatment) Hx Hypercholesterolemia: Yes (on med) Hx Pacemaker: No HX Cerebrovascular Accident: No Hx Seizures: No Hx Dementia: No Hx Diabetes: No Hx Gastrointestinal Disorders: Yes (acid reflux) Hx Liver Disease: No Hx Genitourinary Disorders: No Hx Sexually Transmitted Disorders: No Hx Renal Disease (ESRD): No Hx Thyroid Disease: No Hx Human Immunodeficiency Virus (HIV): No (negative) Hx Hepatitis C: No (negative) Hx Depression: Yes Hx Suicide Attempt: Yes (at 9 yrs) Hx Bipolar Disorder: No Hx Schizophrenia: No - Patient Surgical History Past Surgical History: No Hx Neurologic Surgery: No Hx Cataract Extraction: No Hx Cardiac Surgery: Yes (s/p angioplasty with 2 stents in 08/20/15 at [facility]) Hx Lung Surgery: No Hx Breast Surgery: No Hx Breast Biopsy: No Hx Abdominal Surgery: No Hx Appendectomy: No Hx Cholecystectomy: No Hx Genitourinary Surgery: No Hx Section: No Hx Orthopedic Surgery: No Anesthesia Reaction: No - PPD History Previous Implant?: Yes Documented Results: Negative w/o proof Date: 10/26/16 Results: 0mm PPD to be Administered?: No - Reproductive History Patient is a Female of Child Bearing Age (11 -55 yrs old): No - Smoking Cessation Smoking history: Current every day smoker Have you smoked in the past 12 months: No Aproximately how many cigarettes per day: 5 Hx Chewing Tobacco Use: No Initiated information on smoking cessation: Yes 'Breaking Loose' booklet given: 02/01/17 - Substance & Tx. History Hx Alcohol Use: Yes Hx Substance Use: No Substance Use Type: Alcohol Hx Substance Use Treatment: No - Substances Abused Alcohol Route: Oral Frequency: 1-2 times per week Amount used: 1 pint vodka Age of first use: 16 Date of Last Use: 01/27/17 Family Disease History - Family Disease History Family Disease History: Heart Disease: Grandparent (alcohol ), Other: Grandparent, Father (alcohol) Admission Physical Exam S - Vital Signs Vital Signs: Vital Signs - 24 hr 02/01/17 10:33 Temperature 224 F H Pulse Rate 67 Respiratory 20 Rate Blood Pressure 104/82 - Physical General Appearance: Yes: Appropriately Dressed HEENTM: Yes: Hearing grossly Normal Respiratory: Yes: Lungs Clear, Normal Breath Sounds, No Respiratory Distress Neck: Yes: Within Normal Limits, No masses,lesions,Nodules Breast: Yes: Within Normal Limits Cardiology: Yes: Regular Rhythm, Regular Rate, S1, S2 Abdominal: Yes: Normal Bowel Sounds Genitourinary: Yes: Within Normal Limits Back: Yes: Normal Inspection Musculoskeletal: Yes: Back pain, Other (left shoulder range restriction d/t surgery 07/2016.) Extremities: Yes: Within Normal Limits Neurological: Yes: Fully Oriented, Alert, Normal Response Integumentary: Yes: Normal Color Lymphatic: Yes: Within Normal Limits - Diagnostic (1) Alcohol dependence Current Visit: No Status: Chronic Qualifiers: Substance use status: uncomplicated Qualified Code(s): F10.20 - Alcohol dependence, uncomplicated (2) MDD (major depressive disorder), single episode Current Visit: No Status: Chronic (3) CAD (coronary artery disease) Current Visit: No Status: Chronic Qualifiers: Associated angina: without angina (4) Depression Current Visit: No Status: Chronic (5) Essential (primary) hypertension Current Visit: Yes Status: Chronic (6) GERD (gastroesophageal reflux disease) Current Visit: Yes Status: Chronic Qualifiers: Esophagitis presence: without esophagitis Qualified Code(s): K21.9 - Gastro-esophageal reflux disease without esophagitis (7) H/O heart artery stent Current Visit: No Status: Chronic (8) Hypercholesteremia Current Visit: Yes Status: Chronic (9) Low back pain Current Visit: Yes Status: Chronic Qualifiers: Chronicity: chronic (10) H/O shoulder surgery Current Visit: Yes Status: Resolved Cleared for Admission [facility] - Detox or Rehab [facility] Level of Care: Medically Managed Claeared for Rehab Admission: Yes [facility] Breath Alcohol Content Breath Alcohol Content: 0 Urine Drug Screen - Results Drug Screen Negative: Yes
[2017-02-01] MEDS ORDERED: diphenhydrAMINE HCL 50 MG CAPSULE PO PRN (12:59)
[2017-02-01] MEDS ORDERED: NICOTINE POLACRILEX 4 MG GUM BUC PRN (12:59)
[2017-02-01] MEDS ORDERED: MAG HYDROX/AL HYDROX/SIMETH 30 ML UNIT-DOSE CUP PO PRN (12:59)
[2017-02-01] MEDS ORDERED: MAGNESIUM CITRATE 300 ML BOTTLE PO PRN (12:59)
[2017-02-01] MEDS ORDERED: guaiFENesin/D-METHORPHAN HB 10 ML UNIT-DOSE CUPS PO PRN (12:59)
[2017-02-01] MEDS ORDERED: MENTHOL/PHENOL 1 EACH UD MM PRN (12:59)
[2017-02-01] MEDS ORDERED: P-EPHED 60MG/TRIPROLIDI 2.5MG TABLET PO PRN (12:59)
[2017-02-01] MEDS ORDERED: ACETAMINOPHEN 325 MG TABLET (FP) PO PRN (12:59)
[2017-02-01] MEDS ORDERED: MAGNESIUM HYDROX 2400MG/30ML ORAL SUSPENSION 30 ML CUP PO PRN (12:59)
[2017-02-01] MEDS ORDERED: hydrOXYzine PAMOATE 50 MG CAPSULE (FP) PO PRN (12:59)
[2017-02-01] MEDS ORDERED: LOPERAMIDE HCL 2 MG CAPSULE PO PRN (12:59)
--- NOTE | 2017-02-01 14:35 | HP ---
Psychiatrist Admission - Data Date of interview: 02/01/17 Admission source: [facility](FS) Identifying data: This is the the third [facility] admission for this 56 years , father of 2 sons, unemployed on SSD, living in supportive house Medical History: Significant for HTN, Hyperlipidemia, CAD with 2 stents, GERD, and history of surgery on left shoulder. Smokes 5 cigarettes daily Psychiatric History: Patient has seen a psychatist and therapist at the [facility] rehab at [place] in 2012. The psychiatrist prescribed Cymbalta and he stopped taking it after 3-4 months because of drowsiness which prevented him from staying awake in groups. For 3 years after that, he had regularly visiting with a therapist at the [facility] in [place], until he moved to [place], and the therapist quit. For about a year now he has been seeing a therapist at [facility] in [place]. He is diagnosed with MDD and denies prior psychiatic admission. No suicide attempts as an adult but He has a history of a suicide attempt at age 8 when he took his sister's anemia pills because his parents would not let him play football with his friends. Told copy writer that he was referred by the therapist to see Dr Alonzo, a private psychiatrist whom he saw for the frederick time 6 weeks ago. He said that Dr Alonzo wants him to be sober before he could be evaluated for need for medication. At present feeling fine but sleeps poorly Vital Signs: Vital Signs - 24 hr 02/01/17 10:33 Temperature 224 F H Pulse Rate 67 Respiratory 20 Rate Blood Pressure 104/82 Allergies/Adverse Reactions: Allergies Allergy/AdvReac Type Severity Reaction Status Date / Time No Known Drug Allergies Allergy Verified 10/31/16 12:40 lactose AdvReac Severe Vomiting Verified 02/01/17 10:51 - Substance Abuse/Tx History Hx Alcohol Use: Yes Hx Substance Use: No Substance Use Type: Alcohol (Started drinking alcohol at age 16, consumes one pint of vodka daily. last drink on 01/27/17) Hx Substance Use Treatment: Yes (2 previous inpt detox & 2 inpt rehab @ [facility]) - Admission Criteria Previous failed treatment: No Poor recovery environment: Yes Comorbidities: Yes Lacks judgement: Yes Mental Status Exam - Mental Status Exam Alert and Oriented to: Time, Place, Person Cognitive Function: Fair Patient Appearance: Well Groomed Mood: Hopeful, Euthymic Patient Behavior: Cooperative Speech Pattern: Clear Voice Loudness: Normal Thought Process: Intact, Goal Oriented Thought Disorder: Not Present Hallucinations: Denies Suicidal Ideation: Denies Homicidal Ideation: Denies Insight/Judgement: Fair Sleep: Poorly Appetite: Good Muscle strength/Tone: Normal Gait/Station: Normal Psychiatric Findings - Problem List ([place] 1, 2,3) (1) Alcohol dependence Current Visit: No Status: Chronic Qualifiers: Substance use status: uncomplicated Qualified Code(s): F10.20 - Alcohol dependence, uncomplicated (2) Nicotine dependence Current Visit: Yes Status: Acute (3) Substance induced mood disorder Current Visit: Yes Status: Acute (4) MDD (major depressive disorder) Current Visit: Yes Status: Ruled-out (5) Essential (primary) hypertension Current Visit: Yes Status: Chronic (6) GERD (gastroesophageal reflux disease) Current Visit: Yes Status: Chronic Qualifiers: Esophagitis presence: without esophagitis Qualified Code(s): K21.9 - Gastro-esophageal reflux disease without esophagitis (7) Hypercholesteremia Current Visit: Yes Status: Chronic (8) Low back pain Current Visit: Yes Status: Chronic Qualifiers: Chronicity: chronic (9) H/O shoulder surgery Current Visit: Yes Status: Resolved (10) Arthritis of both knees Current Visit: No Status: Chronic (11) H/O heart artery stent Current Visit: No Status: Chronic - Initial Treatment Plan Initial Treatment Plan: 1) Start Trazadone 100 mg po HS. 2) Monitor progress
[2017-02-01] MEDS: PANTOPRAZOLE 40 MG TABLET (FP) PO SCH (15:46)
[2017-02-01] MEDS: NAPROXEN 500 MG TABLET (FP) PO SCH ×2 (15:46→21:05)
[2017-02-01 17:00] LABS: MCH 31.2 pg (25.7-33.7); MCHC 33.5 g/dl (32.0-35.9); MEAN CELL VOLUME 93.1 fl (80-96); MEAN PLT VOLUME 9.6 fl (7.5-11.1); PLATELET COUNT 181 K/MM3 (134-434); RDW 15.9 % (11.9-15.9); WHITE BLOOD COUNT 4.5 K/mm3 (4.0-10.0)
[2017-02-01 17:05] LABS: URINE APPEARANCE CLEAR; URINE BILIRUBIN NEGATIVE (NEGATIVE); URINE BLOOD NEGATIVE (NEGATIVE); URINE COLOR YELLOW; URINE GLUCOSE (UA) NEGATIVE (NEGATIVE); URINE KETONE NEGATIVE (NEGATIVE); URINE LEUK ESTERASE NEGATIVE (NEGATIVE); URINE NITRITE NEGATIVE (NEGATIVE); URINE PROTEIN NEGATIVE (NEGATIVE)
[2017-02-01 17:12] LABS: ANION GAP 4 (8-16); CALCIUM 9.2 mg/dL (8.5-10.1); CO2 30 mmol/L (21-32); GLUCOSE,RANDOM 98 mg/dL (74-106)
[2017-02-01 17:18] LABS: ALK PHOS 152 U/L (45-117); BILIRUBIN,TOTAL 0.7 mg/dL (0.2-1.0); SGOT/AST 36 U/L (15-37); SGPT/ALT 29 U/L (12-78); TOT PROT 7.7 g/dl (6.4-8.2)
[2017-02-01] MEDS: ASPIRIN COATED 81 MG TABLET.EC PO SCH (18:00)
[2017-02-01] MEDS: METOPROLOL SUCCINATE 50 MG TAB.SR.24H (FP) PO SCH (18:00)
[2017-02-01] MEDS: LISINOPRIL 5 MG TABLET (FP) PO SCH (18:00)
[2017-02-01] MEDS ORDERED: PT OWN MED DRAWER 7, Y5N ONE (19:33)
[2017-02-01] MEDS: THIAMINE HCL 100 MG TABLET (FP) PO SCH (21:05)
[2017-02-01] MEDS: GABAPENTIN 300 MG CAPSULE (FP) PO SCH (21:05)
[2017-02-01] MEDS: traZODone HCL 100 MG TABLET (FP) PO SCH (21:05)
[2017-02-01] MEDS: ATORVASTATIN CA 40 MG TABLET (FP) PO SCH (21:05)
[2017-02-02] MEDS: METOPROLOL SUCCINATE 50 MG TAB.SR.24H (FP) PO SCH (09:42)
[2017-02-02] MEDS: ASPIRIN COATED 81 MG TABLET.EC PO SCH (09:43)
[2017-02-02] MEDS: PANTOPRAZOLE 40 MG TABLET (FP) PO SCH (09:43)
[2017-02-02] MEDS: GABAPENTIN 300 MG CAPSULE (FP) PO SCH ×2 (09:43→21:10)
[2017-02-02] MEDS: LISINOPRIL 5 MG TABLET (FP) PO SCH (09:43)
[2017-02-02] MEDS: NAPROXEN 500 MG TABLET (FP) PO SCH ×2 (09:43→21:10)
[2017-02-02] MEDS: PRENATAL VITAMINS W/ FOLIC ACID TABLET (FP) PO SCH (09:43)
[2017-02-02] MEDS: NICOTINE 14 MG/24 HOURS TOPICAL PATCH TD SCH (09:44)
--- NOTE | 2017-02-02 15:38 | EKG ---
Test Reason : Blood Pressure : / mmHG Vent. Rate : 058 BPM Atrial Rate : 058 BPM P-R Int : 148 ms QRS Dur : 092 ms QT Int : 420 ms P-R-T Axes : 030 -07 009 degrees QTc Int : 412 ms SINUS BRADYCARDIA MINIMAL VOLTAGE CRITERIA FOR LVH, MAY BE NORMAL VARIANT BORDERLINE ECG WHEN COMPARED WITH ECG OF 24-OCT-2016 15:24, VENT. RATE HAS DECREASED BY 35 BPM Confirmed by RANDAL MCCARTHY, LUIS ([id number]) on 02/02/2017 3:38:24 PM Referred By: Marianne MONTEJO Confirmed By:LUIS TEE MD
[2017-02-02] MEDS: ATORVASTATIN CA 40 MG TABLET (FP) PO SCH (21:10)
[2017-02-02] MEDS: THIAMINE HCL 100 MG TABLET (FP) PO SCH (21:10)
[2017-02-02] MEDS: traZODone HCL 100 MG TABLET (FP) PO SCH (21:10)
[2017-02-03] MEDS: ASPIRIN COATED 81 MG TABLET.EC PO SCH (09:44)
[2017-02-03] MEDS: PRENATAL VITAMINS W/ FOLIC ACID TABLET (FP) PO SCH (09:44)
[2017-02-03] MEDS: PANTOPRAZOLE 40 MG TABLET (FP) PO SCH (09:44)
[2017-02-03] MEDS: GABAPENTIN 300 MG CAPSULE (FP) PO SCH ×2 (09:44→21:09)
[2017-02-03] MEDS: LISINOPRIL 5 MG TABLET (FP) PO SCH (09:44)
[2017-02-03] MEDS: METOPROLOL SUCCINATE 50 MG TAB.SR.24H (FP) PO SCH (09:44)
[2017-02-03] MEDS: NAPROXEN 500 MG TABLET (FP) PO SCH ×2 (09:44→21:09)
[2017-02-03] MEDS: NICOTINE 14 MG/24 HOURS TOPICAL PATCH TD SCH (09:46)
[2017-02-03] MEDS: THIAMINE HCL 100 MG TABLET (FP) PO SCH (21:09)
[2017-02-03] MEDS: ATORVASTATIN CA 40 MG TABLET (FP) PO SCH (21:09)
[2017-02-03] MEDS: traZODone HCL 100 MG TABLET (FP) PO SCH (21:09)
[2017-02-04] MEDS: PANTOPRAZOLE 40 MG TABLET (FP) PO SCH (09:31)
[2017-02-04] MEDS: ASPIRIN COATED 81 MG TABLET.EC PO SCH (09:31)
[2017-02-04] MEDS: GABAPENTIN 300 MG CAPSULE (FP) PO SCH ×2 (09:31→21:08)
[2017-02-04] MEDS: NICOTINE 14 MG/24 HOURS TOPICAL PATCH TD SCH (09:31)
[2017-02-04] MEDS: PRENATAL VITAMINS W/ FOLIC ACID TABLET (FP) PO SCH (09:31)
[2017-02-04] MEDS: LISINOPRIL 5 MG TABLET (FP) PO SCH (09:31)
[2017-02-04] MEDS: NAPROXEN 500 MG TABLET (FP) PO SCH ×2 (09:31→21:08)
[2017-02-04] MEDS: METOPROLOL SUCCINATE 50 MG TAB.SR.24H (FP) PO SCH (09:31)
[2017-02-04] MEDS: traZODone HCL 100 MG TABLET (FP) PO SCH (21:08)
[2017-02-04] MEDS: ATORVASTATIN CA 40 MG TABLET (FP) PO SCH (21:08)
[2017-02-04] MEDS: THIAMINE HCL 100 MG TABLET (FP) PO SCH (21:08)
[2017-02-05] MEDS: NICOTINE 14 MG/24 HOURS TOPICAL PATCH TD SCH (09:45)
[2017-02-05] MEDS: PRENATAL VITAMINS W/ FOLIC ACID TABLET (FP) PO SCH (09:45)
[2017-02-05] MEDS: LISINOPRIL 5 MG TABLET (FP) PO SCH (09:45)
[2017-02-05] MEDS: ASPIRIN COATED 81 MG TABLET.EC PO SCH (09:45)
[2017-02-05] MEDS: METOPROLOL SUCCINATE 50 MG TAB.SR.24H (FP) PO SCH (09:45)
[2017-02-05] MEDS: PANTOPRAZOLE 40 MG TABLET (FP) PO SCH (09:45)
[2017-02-05] MEDS: NAPROXEN 500 MG TABLET (FP) PO SCH ×2 (09:45→21:02)
[2017-02-05] MEDS: GABAPENTIN 300 MG CAPSULE (FP) PO SCH ×2 (09:45→21:02)
[2017-02-05] MEDS: THIAMINE HCL 100 MG TABLET (FP) PO SCH (21:02)
[2017-02-05] MEDS: ATORVASTATIN CA 40 MG TABLET (FP) PO SCH (21:02)
[2017-02-05] MEDS: traZODone HCL 100 MG TABLET (FP) PO SCH (21:03)
[2017-02-06] MEDS: ASPIRIN COATED 81 MG TABLET.EC PO SCH (09:41)
[2017-02-06] MEDS: LISINOPRIL 5 MG TABLET (FP) PO SCH (09:41)
[2017-02-06] MEDS: PRENATAL VITAMINS W/ FOLIC ACID TABLET (FP) PO SCH (09:41)
[2017-02-06] MEDS: METOPROLOL SUCCINATE 50 MG TAB.SR.24H (FP) PO SCH (09:41)
[2017-02-06] MEDS: GABAPENTIN 300 MG CAPSULE (FP) PO SCH ×2 (09:41→21:02)
[2017-02-06] MEDS: NAPROXEN 500 MG TABLET (FP) PO SCH ×2 (09:43→21:02)
[2017-02-06] MEDS: NICOTINE 14 MG/24 HOURS TOPICAL PATCH TD SCH (09:44)
[2017-02-06] MEDS: PANTOPRAZOLE 40 MG TABLET (FP) PO SCH (09:46)
[2017-02-06] MEDS: THIAMINE HCL 100 MG TABLET (FP) PO SCH (21:02)
[2017-02-06] MEDS: ATORVASTATIN CA 40 MG TABLET (FP) PO SCH (21:02)
[2017-02-06] MEDS: traZODone HCL 100 MG TABLET (FP) PO SCH (21:02)
[2017-02-07] MEDS: METOPROLOL SUCCINATE 50 MG TAB.SR.24H (FP) PO SCH (10:16)
[2017-02-07] MEDS: GABAPENTIN 300 MG CAPSULE (FP) PO SCH ×2 (10:16→21:23)
[2017-02-07] MEDS: LISINOPRIL 5 MG TABLET (FP) PO SCH (10:16)
[2017-02-07] MEDS: PRENATAL VITAMINS W/ FOLIC ACID TABLET (FP) PO SCH (10:16)
[2017-02-07] MEDS: PANTOPRAZOLE 40 MG TABLET (FP) PO SCH (10:16)
[2017-02-07] MEDS: ASPIRIN COATED 81 MG TABLET.EC PO SCH (10:17)
[2017-02-07] MEDS: NICOTINE 14 MG/24 HOURS TOPICAL PATCH TD SCH (10:17)
[2017-02-07] MEDS: NAPROXEN 500 MG TABLET (FP) PO SCH ×2 (10:17→21:23)
[2017-02-07] MEDS: THIAMINE HCL 100 MG TABLET (FP) PO SCH (21:23)
[2017-02-07] MEDS: traZODone HCL 100 MG TABLET (FP) PO SCH (21:23)
[2017-02-07] MEDS: ATORVASTATIN CA 40 MG TABLET (FP) PO SCH (21:23)
[2017-02-08] MEDS: PRENATAL VITAMINS W/ FOLIC ACID TABLET (FP) PO SCH (09:41)
[2017-02-08] MEDS: PANTOPRAZOLE 40 MG TABLET (FP) PO SCH (09:41)
[2017-02-08] MEDS: NAPROXEN 500 MG TABLET (FP) PO SCH ×2 (09:41→21:08)
[2017-02-08] MEDS: GABAPENTIN 300 MG CAPSULE (FP) PO SCH ×2 (09:42→21:09)
[2017-02-08] MEDS: LISINOPRIL 5 MG TABLET (FP) PO SCH (09:42)
[2017-02-08] MEDS: NICOTINE 14 MG/24 HOURS TOPICAL PATCH TD SCH (09:42)
[2017-02-08] MEDS: METOPROLOL SUCCINATE 50 MG TAB.SR.24H (FP) PO SCH (09:42)
[2017-02-08] MEDS: ASPIRIN COATED 81 MG TABLET.EC PO SCH (09:42)
--- NOTE | 2017-02-08 12:36 | PN ---
[facility] Progress Note Note: Laboratory Last Values WBC 4.5 K/mm3 (4.0-10.0) 02/01/17 12:30 RBC 4.12 M/mm3 (4.00-5.60) 02/01/17 12:30 Hgb 12.8 GM/dL (11.7-16.9) 02/01/17 12:30 Hct 38.3 % (35.4-49) 02/01/17 12:30 MCV 93.1 fl (80-96) 02/01/17 12:30 MCH 31.2 pg (25.7-33.7) 02/01/17 12:30 MCHC 33.5 g/dl (32.0-35.9) 02/01/17 12:30 RDW 15.9 % (11.9-15.9) 02/01/17 12:30 Plt Count 181 K/MM3 (134-434) 02/01/17 12:30 MPV 9.6 fl (7.5-11.1) 02/01/17 12:30 Sodium 141 mmol/L (136-145) 02/01/17 12:30 Potassium 5.3 mmol/L (3.5-5.1) H D 02/01/17 12:30 Chloride 107 mmol/L (98-107) 02/01/17 12:30 Carbon Dioxide 30 mmol/L (21-32) 02/01/17 12:30 Anion Gap 4 (8-16) L 02/01/17 12:30 BUN 22 mg/dL (7-18) H D 02/01/17 12:30 Creatinine 1.0 mg/dL (0.7-1.3) 02/01/17 12:30 Creat Clearance w eGFR > 60 (>60) 02/01/17 12:30 Random Glucose 98 mg/dL (74-106) D 02/01/17 12:30 Calcium 9.2 mg/dL (8.5-10.1) 02/01/17 12:30 Total Bilirubin 0.7 mg/dL (0.2-1.0) D 02/01/17 12:30 AST 36 U/L (15-37) D 02/01/17 12:30 ALT 29 U/L (12-78) D 02/01/17 12:30 Alkaline Phosphatase 152 U/L (45-117) H 02/01/17 12:30 Total Protein 7.7 g/dl (6.4-8.2) 02/01/17 12:30 Albumin 4.0 g/dl (3.4-5.0) 02/01/17 12:30 Urine Color Yellow 02/01/17 14:00 Urine Appearance Clear 02/01/17 14:00 Urine pH 5.0 (5.0-8.0) 02/01/17 14:00 Ur Specific [place] 1.025 (1.005-1.025) 02/01/17 14:00 Urine Protein Negative (NEGATIVE) 02/01/17 14:00 Urine Glucose (UA) Negative (NEGATIVE) 02/01/17 14:00 Urine Ketones Negative (NEGATIVE) 02/01/17 14:00 Urine Blood Negative (NEGATIVE) 02/01/17 14:00 Urine Nitrite Negative (NEGATIVE) 02/01/17 14:00 Urine Bilirubin Negative (NEGATIVE) 02/01/17 14:00 Urine Urobilinogen 2.0 mg/dL (0.2-1.0) 02/01/17 14:00 Ur Leukocyte Esterase Negative (NEGATIVE) 02/01/17 14:00 RPR Titer Nonreactive (NONREACTIVE) 02/01/17 12:30 advise oral fluid repeat cmp in am,
[2017-02-08] MEDS: traZODone HCL 100 MG TABLET (FP) PO SCH (20:07)
[2017-02-08] MEDS: THIAMINE HCL 100 MG TABLET (FP) PO SCH (21:08)
[2017-02-08] MEDS: ATORVASTATIN CA 40 MG TABLET (FP) PO SCH (21:08)
[2017-02-09] MEDS: PRENATAL VITAMINS W/ FOLIC ACID TABLET (FP) PO SCH (09:33)
[2017-02-09] MEDS: LISINOPRIL 5 MG TABLET (FP) PO SCH (09:33)
[2017-02-09] MEDS: PANTOPRAZOLE 40 MG TABLET (FP) PO SCH (09:33)
[2017-02-09] MEDS: GABAPENTIN 300 MG CAPSULE (FP) PO SCH ×2 (09:34→22:15)
[2017-02-09] MEDS: METOPROLOL SUCCINATE 50 MG TAB.SR.24H (FP) PO SCH (09:34)
[2017-02-09] MEDS: ASPIRIN COATED 81 MG TABLET.EC PO SCH (09:34)
[2017-02-09] MEDS: NAPROXEN 500 MG TABLET (FP) PO SCH ×2 (09:34→22:20)
[2017-02-09] MEDS: NICOTINE 14 MG/24 HOURS TOPICAL PATCH TD SCH (09:34)
[2017-02-09 10:05] LABS: ALBUMIN 4.2 g/dl (3.4-5.0); ANION GAP 7 (8-16); BILIRUBIN,TOTAL 0.6 mg/dL (0.2-1.0); CALCIUM 8.7 mg/dL (8.5-10.1); CO2 26 mmol/L (21-32); CREATININE 1.1 mg/dL (0.7-1.3); GLUCOSE,RANDOM 109 mg/dL (74-106); SGOT/AST 29 U/L (15-37); SGPT/ALT 28 U/L (12-78); TOT PROT 7.8 g/dl (6.4-8.2)
[2017-02-09 10:06] LABS: ALK PHOS 124 U/L (45-117)
[2017-02-09] MEDS: traZODone HCL 100 MG TABLET (FP) PO SCH (20:15)
[2017-02-09] MEDS: THIAMINE HCL 100 MG TABLET (FP) PO SCH (22:00)
[2017-02-09] MEDS: ATORVASTATIN CA 40 MG TABLET (FP) PO SCH (22:00)
[2017-02-10] MEDS: GABAPENTIN 300 MG CAPSULE (FP) PO SCH ×2 (09:43→21:38)
[2017-02-10] MEDS: PANTOPRAZOLE 40 MG TABLET (FP) PO SCH (09:43)
[2017-02-10] MEDS: LISINOPRIL 5 MG TABLET (FP) PO SCH (09:43)
[2017-02-10] MEDS: PRENATAL VITAMINS W/ FOLIC ACID TABLET (FP) PO SCH (09:43)
[2017-02-10] MEDS: ASPIRIN COATED 81 MG TABLET.EC PO SCH (09:43)
[2017-02-10] MEDS: METOPROLOL SUCCINATE 50 MG TAB.SR.24H (FP) PO SCH (09:43)
[2017-02-10] MEDS: NAPROXEN 500 MG TABLET (FP) PO SCH ×2 (09:44→21:38)
[2017-02-10] MEDS: NICOTINE 14 MG/24 HOURS TOPICAL PATCH TD SCH (09:45)
[2017-02-10] MEDS: traZODone HCL 100 MG TABLET (FP) PO SCH (20:22)
[2017-02-10] MEDS: ATORVASTATIN CA 40 MG TABLET (FP) PO SCH (21:38)
[2017-02-10] MEDS: THIAMINE HCL 100 MG TABLET (FP) PO SCH (21:38)
[2017-02-11] MEDS: METOPROLOL SUCCINATE 50 MG TAB.SR.24H (FP) PO SCH (09:38)
[2017-02-11] MEDS: LISINOPRIL 5 MG TABLET (FP) PO SCH (09:38)
[2017-02-11] MEDS: ASPIRIN COATED 81 MG TABLET.EC PO SCH (09:38)
[2017-02-11] MEDS: NAPROXEN 500 MG TABLET (FP) PO SCH ×2 (09:38→21:02)
[2017-02-11] MEDS: GABAPENTIN 300 MG CAPSULE (FP) PO SCH ×2 (09:38→21:02)
[2017-02-11] MEDS: PRENATAL VITAMINS W/ FOLIC ACID TABLET (FP) PO SCH (09:38)
[2017-02-11] MEDS: NICOTINE 14 MG/24 HOURS TOPICAL PATCH TD SCH (09:38)
[2017-02-11] MEDS: PANTOPRAZOLE 40 MG TABLET (FP) PO SCH (09:38)
[2017-02-11] MEDS: traZODone HCL 100 MG TABLET (FP) PO SCH (20:49)
[2017-02-11] MEDS: ATORVASTATIN CA 40 MG TABLET (FP) PO SCH (21:02)
[2017-02-11] MEDS: THIAMINE HCL 100 MG TABLET (FP) PO SCH (21:02)
[2017-02-12] MEDS: ASPIRIN COATED 81 MG TABLET.EC PO SCH (09:30)
[2017-02-12] MEDS: PRENATAL VITAMINS W/ FOLIC ACID TABLET (FP) PO SCH (09:30)
[2017-02-12] MEDS: GABAPENTIN 300 MG CAPSULE (FP) PO SCH ×2 (09:30→21:32)
[2017-02-12] MEDS: LISINOPRIL 5 MG TABLET (FP) PO SCH (09:30)
[2017-02-12] MEDS: PANTOPRAZOLE 40 MG TABLET (FP) PO SCH (09:30)
[2017-02-12] MEDS: METOPROLOL SUCCINATE 50 MG TAB.SR.24H (FP) PO SCH (09:30)
[2017-02-12] MEDS: NAPROXEN 500 MG TABLET (FP) PO SCH ×2 (09:30→21:32)
[2017-02-12] MEDS: NICOTINE 14 MG/24 HOURS TOPICAL PATCH TD SCH (09:31)
[2017-02-12] MEDS: traZODone HCL 100 MG TABLET (FP) PO SCH (20:19)
[2017-02-12] MEDS: THIAMINE HCL 100 MG TABLET (FP) PO SCH (21:31)
[2017-02-12] MEDS: ATORVASTATIN CA 40 MG TABLET (FP) PO SCH (21:31)
[2017-02-13] MEDS: METOPROLOL SUCCINATE 50 MG TAB.SR.24H (FP) PO SCH (09:52)
[2017-02-13] MEDS: PRENATAL VITAMINS W/ FOLIC ACID TABLET (FP) PO SCH (09:52)
[2017-02-13] MEDS: NICOTINE 14 MG/24 HOURS TOPICAL PATCH TD SCH (09:52)
[2017-02-13] MEDS: LISINOPRIL 5 MG TABLET (FP) PO SCH (09:52)
[2017-02-13] MEDS: ASPIRIN COATED 81 MG TABLET.EC PO SCH (09:52)
[2017-02-13] MEDS: PANTOPRAZOLE 40 MG TABLET (FP) PO SCH (09:52)
[2017-02-13] MEDS: NAPROXEN 500 MG TABLET (FP) PO SCH ×2 (09:52→21:27)
[2017-02-13] MEDS: GABAPENTIN 300 MG CAPSULE (FP) PO SCH ×2 (09:52→21:27)
[2017-02-13] MEDS: traZODone HCL 100 MG TABLET (FP) PO SCH (20:07)
[2017-02-13] MEDS: ATORVASTATIN CA 40 MG TABLET (FP) PO SCH (21:27)
[2017-02-13] MEDS: THIAMINE HCL 100 MG TABLET (FP) PO SCH (21:28)
[2017-02-14 06:58] VITALS: TEMP 97.9
[2017-02-14 09:33] VITALS: BP 102/62; PULSE 78
[2017-02-14] MEDS: NAPROXEN 500 MG TABLET (FP) PO SCH ×2 (09:36→21:06)
[2017-02-14] MEDS: ASPIRIN COATED 81 MG TABLET.EC PO SCH (09:37)
[2017-02-14] MEDS: LISINOPRIL 5 MG TABLET (FP) PO SCH (09:37)
[2017-02-14] MEDS: PRENATAL VITAMINS W/ FOLIC ACID TABLET (FP) PO SCH (09:37)
[2017-02-14] MEDS: GABAPENTIN 300 MG CAPSULE (FP) PO SCH ×2 (09:37→21:05)
[2017-02-14] MEDS: PANTOPRAZOLE 40 MG TABLET (FP) PO SCH (09:37)
[2017-02-14] MEDS: NICOTINE 14 MG/24 HOURS TOPICAL PATCH TD SCH (09:37)
[2017-02-14] MEDS: METOPROLOL SUCCINATE 50 MG TAB.SR.24H (FP) PO SCH (09:37)
[2017-02-14] MEDS: traZODone HCL 100 MG TABLET (FP) PO SCH (20:06)
[2017-02-14] MEDS: ATORVASTATIN CA 40 MG TABLET (FP) PO SCH (21:05)
[2017-02-14] MEDS: THIAMINE HCL 100 MG TABLET (FP) PO SCH (21:05)
--- NOTE | 2017-02-15 09:21 | PN ---
Psychiatric Progress Note Vital Signs: Vital Signs Period Temp Pulse Resp BP Sys/Mo Pulse Ox Last 24 Hr 78 18-20 102/62 Date of Session: 02/15/17 Chief Complaint:: Discharge visit HPI: Patient addressed Alcohol dependence comorbid with Alcohol induced mood disorder. ROS: HTN,GERD,Low back pain,Spinal stenosis. Current Medications: Active Medications Generic Name Dose Route Start Last Admin Trade Name Freq PRN Reason Stop Dose Admin Acetaminophen 650 mg 02/01/17 12:59 Tylenol - PO Q4H PRN PAIN Al Hydroxide/Mg Hydroxide 30 ml 02/01/17 12:59 Mylanta Oral Suspension - PO Q6H PRN DYSPEPSIA Aspirin 81 mg 02/01/17 18:00 02/14/17 09:37 Ecotrin - PO 81 mg DAILY RACQUEL Administration Atorvastatin Calcium 40 mg 02/01/17 22:00 02/14/17 21:05 Lipitor - PO 40 mg HS RACQUEL Administration Diphenhydramine HCl 50 mg 02/01/17 12:59 02/06/17 21:02 Benadryl - PO 50 mg HSMR1 PRN Administration INSOMNIA Eucalyptus/Menthol/Phenol/Sorbitol 1 each 02/01/17 12:59 Cepastat Lozenge - MM Q4H PRN SORE THROAT Gabapentin 300 mg 02/01/17 22:00 02/14/17 21:05 Neurontin - PO 300 mg BID RACQUEL Administration Guaifenesin 10 ml 02/01/17 12:59 Robitussin Dm - PO Q6H PRN COUGH Hydroxyzine Pamoate 50 mg 02/01/17 12:59 Vistaril - PO Q4H PRN AGITATION Lisinopril 5 mg 02/01/17 18:00 02/14/17 09:37 Prinivil PO 5 mg DAILY RACQUEL Administration Loperamide HCl 4 mg 02/01/17 12:59 Imodium - PO Q6H PRN DIARRHEA Magnesium Citrate 300 ml 02/01/17 12:59 Citroma - PO Q48H PRN CONSTIPATION Magnesium Hydroxide 30 ml 02/01/17 12:59 Milk Of Magnesia - PO DAILY PRN CONSTIPATION Metoprolol Succinate 50 mg 02/01/17 18:00 02/14/17 09:37 Toprol Xl - PO 50 mg DAILY RACQUEL Administration Naproxen 500 mg 02/01/17 13:00 02/14/17 21:06 Naprosyn - PO 500 mg BID RACQUEL Administration Nicotine 14 mg 02/02/17 10:00 02/14/17 09:37 Nicoderm Patch - TD Not Given DAILY RACQUEL Nicotine Polacrilex 4 mg 02/01/17 12:59 Nicorette Gum - BUC Q2H PRN NICOTINE REPLACEMENT RX Pantoprazole Sodium 40 mg 02/01/17 13:15 02/14/17 09:37 Protonix - PO 40 mg DAILY RACQUEL Administration Multivit/Folic Acid/Iron 1 tab 02/02/17 10:00 02/14/17 09:37 Vitamins (Sjr) - PO 1 tab DAILY RACQUEL Administration Pseudoephedrine/Triprolidine 1 combo 02/01/17 12:59 Actifed - PO TID PRN NASAL CONGESTION Thiamine HCl 100 mg 02/01/17 22:00 02/14/17 21:05 Vitamin B1 - PO 100 mg HS RACQUEL Administration Trazodone HCl 100 mg 02/08/17 20:00 02/14/17 20:06 Desyrel - PO 100 mg HS@2000 RACQUEL Administration Current Side Effect: No Lab tests ordered: No Lab tests reviewed: Yes Provider note:: Patient completed this program today.He has met his treatment goals and will continue to address his issues on outpatient basis at [facility] in [facility].Patient reports finding Neurontin 300 mg po bid and Trazodone 100 mg po hs helps to cope with mood/ sleep instability.Scripts for 30 days supply provided. Patient identifies areas of difficulties,behaviods which contibute to relapse and coping skills, support he can utilize to maitain recovery. supportive therapy provided. Patient is stable for discharge today. Total face to face time:: 30 Mental Status Exam - Mental Status Exam Alert and Oriented to: Time, Place, Person Cognitive Function: Grossly Intact Patient Appearance: Well Groomed Mood: Hopeful, Euthymic Affect: Mood Congruent Patient Behavior: Cooperative Speech Pattern: Clear Voice Loudness: Normal Thought Process: Goal Oriented Thought Disorder: Not Present Hallucinations: Denies Suicidal Ideation: Denies Homicidal Ideation: Denies Insight/Judgement: Fair Sleep: Fair Appetite: Good Muscle strength/Tone: Normal Gait/Station: Normal Psychiatric Treatment Plan - Problem List (1) Nicotine dependence Current Visit: Yes (2) Substance induced mood disorder Current Visit: Yes (3) Essential (primary) hypertension Current Visit: Yes (4) GERD (gastroesophageal reflux disease) Current Visit: Yes Qualifiers: Esophagitis presence: without esophagitis Qualified Code(s): K21.9 - Gastro-esophageal reflux disease without esophagitis (5) Hypercholesteremia Current Visit: Yes (6) Low back pain Current Visit: Yes Qualifiers: Chronicity: chronic (7) H/O shoulder surgery Current Visit: Yes
[2017-02-15] MEDS: GABAPENTIN 300 MG CAPSULE (FP) PO SCH (09:33)
[2017-02-15] MEDS: NAPROXEN 500 MG TABLET (FP) PO SCH (09:33)
[2017-02-15] MEDS: METOPROLOL SUCCINATE 50 MG TAB.SR.24H (FP) PO SCH (09:33)
[2017-02-15] MEDS: PRENATAL VITAMINS W/ FOLIC ACID TABLET (FP) PO SCH (09:33)
[2017-02-15] MEDS: ASPIRIN COATED 81 MG TABLET.EC PO SCH (09:33)
[2017-02-15] MEDS: PANTOPRAZOLE 40 MG TABLET (FP) PO SCH (09:33)
[2017-02-15] MEDS: LISINOPRIL 5 MG TABLET (FP) PO SCH (09:34)
[2017-02-15] MEDS: NICOTINE 14 MG/24 HOURS TOPICAL PATCH TD SCH (09:34)
== END 2017-02-15 09:40 | disposition home or self-care (01) | DRG 772 ==
LOC: YASAS 09:00 → Y3W 12:54
PROVIDERS: ADMIT Psychiatry & Neurology Psychiatry; ATTEND Psychiatry & Neurology Psychiatry
PROC: HZ42ZZZ Group Counseling for Substance Abuse Treatment, Cognitive-Behavioral (ICD-10-PCS; principal; 2017-02-15)
DX: F10.20 Alcohol dependence, uncomplicated (principal); F17.210 Nicotine dependence, cigarettes, uncomplicated; F19.24 Other psychoactive substance dependence with psychoactive substance-induced mood disorder; F33.9 Major depressive disorder, recurrent, unspecified; I25.10 Atherosclerotic heart disease of native coronary artery without angina pectoris; I10 Essential (primary) hypertension; Z95.5 Presence of coronary angioplasty implant and graft; K21.9 Gastro-esophageal reflux disease without esophagitis; E78.00 Pure hypercholesterolemia, unspecified; M13.862 Other specified arthritis, left knee; M13.861 Other specified arthritis, right knee; M54.5 Low back pain; G89.29 Other chronic pain
CPT/HCPCS: 36415; 80053; 81003; 85027; 86593; 93005; 93010